=== PATIENT | female | born 1970 | race Caucasian/White ===

== ENCOUNTER 2018-11-03 16:09 | Observation (INO) | payer BC ==
[2018-11-03] MEDS ORDERED: NS 1,000 ML IV ONE (16:12)
[2018-11-03] MEDS ORDERED: ASPIRIN 81 MG CHEWABLE TAB PO ONE (16:12)
--- NOTE | 2018-11-03 16:12 | EDPHY ---
H & P Time Seen by Provider: 11/03/18 16:12 HPI/ROS: HPI CHIEF COMPLAINT: Chest pain. HISTORY OF PRESENT ILLNESS: This patient is a 48-year-old female she is otherwise healthy, she presents emergency room with chest pressure after exertion. Patient states yesterday she went to do her cross fit activity and developed chest pressure discomfort in her chest after her workout. She then took a nap at home and then went for a run and again developed chest pressure. It is resolved with rest. She states she felt heaviness in her chest. She has never had this before. She denies pleuritic pain, denies recent illness. She does states she has had some sick contacts at home. She main appoint with her primary care doctor today was referred to the emergency room. She does report that when she walked into the building to go see her primary care doctor up stairs walked upstairs she developed some chest pressure. She thought maybe she had the flu. She does endorse some muscle aches and joint pain. No fever. No vomiting. No pleuritic pain, no cough. She denies any significant cardiovascular family history. Past Medical History: Adrenal replacement. Past Surgical History: Uterine ablation. Knee surgery. Social History: Denies drugs alcohol tobacco daily. Family History: Denies cardiovascular history are pre per chart cardiac . ROS REVIEW OF SYSTEMS: 10 Systems were reviewed and negative with the exception of the elements mentioned in the history of present illness. Exam Constitutional appears well nontoxic no acute distress triage nursing summary reviewed, vital signs reviewed, awake/alert. Eyes normal conjunctivae and sclera, EOMI, PERRLA. HENT normal inspection, atraumatic, moist mucus membranes, no epistaxis, neck supple/ no meningismus, no raccoon eyes. Respiratory clear to auscultation bilaterally, normal breath sounds, no respiratory distress, no wheezing. Cardiovascular rate normal, regular rhythm, no murmur, no edema, distal pulses normal. Gastrointestinal soft, non-tender, no rebound, no guarding, normal bowel sounds, no distension, no pulsatile mass. Genitourinary no CVA tenderness. Musculoskeletal no midline vertebral tenderness, full range of motion, no calf swelling, no tenderness of extremities, no meningismus, good pulses, neurovascularly intact. Skin pink, warm, & dry, no rash, skin atraumatic. Neurologic awake, alert and oriented x 3, AAOx3, moves all 4 extremities equally, motor intact, sensory intact, CN II-XII intact, normal cerebellar, normal vision, normal speech. Psychiatric normal mood/affect. Heme/Lymph/Immune no lymphadenopathy. Differential Diagnosis: Differential diagnosis includes but is not limited to: ACS, atypical chest pain, pneumothorax, pneumonia, pulmonary embolism, aortic dissection, congestive heart failure, tumor, musculoskeletal pain, esophageal pain, GERD, peptic ulcer disease, pancreatitis Medical Decision Making: Plan for this patient IV establishment, full-dose aspirin, EKG, troponin, chest x-ray, D-dimer Re-evaluation: EKG interpretation by me on record in [employer] system. Impression sinus rhythm rate of 68, without any signs of acute ischemia. No ST elevation no ST depression. 183: Patient here in emergency room at this time chest pain-free. So far cardiac evaluation has been rather unremarkable. She denies any current chest pain, she did receive full-dose aspirin here. She declined nitroglycerin. She has a negative troponin, negative D-dimer, and a nonischemic EKG and a chest x- ray that is unremarkable. The patient has agreed for hospital admission. Given her story which consist of exertional chest pressure when she exerts herself 1 time will doing CrossFit comma 1 time while running, and also coming into the building today walking up a flight of stairs she got chest pressure. These symptoms are very concerning. Long discussion with the patient at bedside they agree for hospital admission, agree to transfer to the hospital for further cardiac evaluation. I did speak with Dr. Blake agrees to admit. Source: Patient Constitutional: Initial Vital Signs Temperature (C) 36.8 C 11/03/18 16:17 Heart Rate 93 11/03/18 16:17 Respiratory Rate 16 11/03/18 16:17 Blood Pressure 158/97 H 11/03/18 16:17 O2 Sat (%) 98 11/03/18 16:17 O2 Delivery Mode Room Air Allergies/Adverse Reactions: No Known Allergies Allergy (Verified 11/03/18 16:28) Home Medications: Medication Instructions Recorded Cholecalciferol Vit D3 [Vitamin D3 1,000 units PO DAILY 11/03/18 (*)] Glucosamine/Chondroitin 1 each PO DAILY 11/04/18 [Glucosamine/Chondroitin (*)] Herbals/Supplements -Info Only 1 ea PO DAILY 11/04/18 Ibuprofen [Motrin (*)] 600 mg PO DAILY PRN 11/04/18 Multivitamins [Multivitamin (*)] 1 each PO DAILY 11/04/18 Vitamin B Complex [Vitamin B 1 each PO DAILY 11/04/18 Complex (OTC)] Medical Decision Making - Data Points Medications Given: Discontinued Medications Aspirin (Aspirin) 324 mg PO EDNOW ONE Stop: 11/03/18 16:13 Last Admin: 11/03/18 16:29 Dose: 324 mg Sodium Chloride (Ns) 1,000 mls @ 0 mls/hr IV EDNOW ONE; Wide Open PRN Reason: Protocol Stop: 11/03/18 16:13 Last Admin: 11/03/18 16:36 Dose: 1,000 mls Nitroglycerin (Nitrostat) 0.4 mg SL EDNOW ONE Stop: 11/03/18 16:34 Last Admin: 11/03/18 18:42 Dose: Not Given Point of Care Test Results: CBC CBC Collection Date 11/03/18 CBC Collection Time 16:34 WBC 7.40 RBC 4.75 HGB 15.1 HCT 44.0 PLT 307 Neut # 4.67 Neut 63.1 LYMPH # 1.57 LYMPH 21.2 MCV 92.6 Chemistry 11/03/18 11/03/18 16:45 16:41 POC Sodium 142 mEq/L mEq/L (135-145) POC Potassium 4.0 mEq/L mEq/L (3.3-5.0) POC Chloride 105.0 mEq/L mEq/L (97-110) POC Total CO2 25 mEq/L mEq/L (22-31) POC BUN 11 mg/dL mg/dL (7-23) POC Creatinine 0.9 mg/dL mg/dL (0.6-1.0) POC Glucose 97 mg/dL mg/dL (70-100) POC Calcium 8.9 mg/dL mg/dL (8.5-10.4) POC Total Bilirubin 0.8 mg/dL mg/dL (0.1-1.4) POC AST 26 IU/L IU/L (14-46) POC ALT 20 IU/L IU/L (9-52) POC Alk Phosphatase 89 IU/L IU/L (38-126) POC Troponin I 0.00 ng/mL ng/mL (0.00-0.08) POC Total Protein 7.0 g/dL g/dL (6.3-8.2) POC Albumin 3.7 g/dL g/dL (3.5-5.0) Comprehensive Metabolic Panel CMP Collection Date 11/03/18 CMP Collection Time 16:34 D-Dimer D-Dimer Collection Date 11/03/18 D-Dimer Collection Time 16:34 D-Dimer (ng/ml) 210 Influenza PCR Flu Nasal Swab Collection Date 11/03/18 Flu Nasal Swab Collection Time 16:42 Influenza A Result Not Detected Influenza B Result Not Detected Departure - Departure Disposition: [facility] Inpatient Acute Clinical Impression: Chest pain Qualifiers: Chest pain type: unspecified Qualified Code(s): R07.9 - Chest pain, unspecified Condition: Good
[2018-11-03] MEDS ORDERED: ASPIRIN 81 MG CHEWABLE TAB ONE (16:26)
[2018-11-03] MEDS ORDERED: NITROGLYCERIN 0.4 MG BTL SL ONE (16:33)
[2018-11-03] MEDS ORDERED: ONDANSETRON 4 MG/2 ML VIAL IVP PRN (21:40)
[2018-11-03] MEDS ORDERED: ACETAMINOPHEN 325 MG TAB PO PRN (21:40)
[2018-11-03] MEDS ORDERED: NITROGLYCERIN 0.4 MG BTL SL PRN (21:40)
--- NOTE | 2018-11-03 22:32 | PDGENHP ---
History and Physical - Chief Complaint chest pain - History of Present Illness 48yo healthy F presents from [facility] ED for further evaluation of chest pain. Substernal, strong pressure that doesn't radiate. Associated with shortness of breath. It is exertional but not pleuritic or positional. Doesn't worsen with palpation. She has had intermittent palpitations but no syncope. No leg swelling. She first noticed chest pain 2 weeks ago after her son passed out while getting out of a hot tub; she felt very stressed at that time. She was pain free for about 2 weeks but then noticed again yesterday while at [employer]. She was doing burpees and felt considerably tired and fatigued and had chest pain. She went home and her chest pain resolved. She then later went on a run with a friend and had recurrence of her symptoms and had to end the run prematurely. Of note, cross fit and running are typical activities for her. She woke up this morning with muscle aches and had a recurrence of chest pain and shortness of breath while walking up a flight of stairs so she went to her PCP' s office who directed her to the ED at the [facility]. She is currently chest pain free. Her initial ecg and troponin were negative for ischemia. A d-dimer was also negative. She is being admitted for further evaluation. Case discussed with ED provider Roe Tamayo. History Information - Allergies/Home Medication List Allergies/Adverse Reactions: No Known Allergies Allergy (Verified 11/03/18 16:28) Home Medications: Vitamin D3 11/03/18 [Last Taken Unknown] I have personally reviewed and updated: family history, medical history, social history, surgical history - Past Medical History no pertinent PMH - Surgical History Additional surgical history: uterine re-suspension surgery, knee surgery - Family History Additional family history: No family history of heart disease or strokes. - Social History Smoking Status: Never smoked Alcohol Use: Rarely Drug Use: None Additional social history: Lives with who is at bedside. Has 3 children. Originally from [place], moved to [place] 3 years ago. Review of Systems Review of Systems: ROS: 10pt was reviewed & negative except for what was stated in HPI & below Physical Exam Physical Exam: Temp Pulse Resp BP Pulse Ox 36.6 C 63 14 125/85 H 94 11/03/18 22:09 11/03/18 22:09 11/03/18 22:09 11/03/18 22:09 11/03/18 22:09 Constitutional: no apparent distress, appears nourished, not in pain Eyes: PERRL, anicteric sclera, EOMI Ears, Nose, Mouth, Throat: moist mucous membranes, hearing normal, ears appear normal, no oral mucosal ulcers Cardiovascular: regular rate and rhythym, no murmur, rub, or gallop, No JVD, No edema Respiratory: no respiratory distress, no rales or rhonchi, clear to auscultation Gastrointestinal: normoactive bowel sounds, soft, non-tender abdomen, no palpable masses Genitourinary: no bladder fullness, no bladder tenderness Skin: warm, normal color, no rashes or abrasions, no fluctuance, no induration, No mottled Musculoskeletal: full muscle strength, no muscle tenderness, normal joint ROM, no joint effusions Neurologic: AAOx3 Psychiatric: interacting appropriately, not anxious, not encephalopathic, thought process linear Lab Data & Imaging Review POC Sodium 142 mEq/L (135-145) 11/03/18 16:45 POC Potassium 4.0 mEq/L (3.3-5.0) 11/03/18 16:45 POC Chloride 105.0 mEq/L (97-110) 11/03/18 16:45 POC Total CO2 25 mEq/L (22-31) 11/03/18 16:45 POC BUN 11 mg/dL (7-23) 11/03/18 16:45 POC Creatinine 0.9 mg/dL (0.6-1.0) 11/03/18 16:45 POC Glucose 97 mg/dL (70-100) 11/03/18 16:45 POC Calcium 8.9 mg/dL (8.5-10.4) 11/03/18 16:45 POC Total Bilirubin 0.8 mg/dL (0.1-1.4) 11/03/18 16:45 POC AST 26 IU/L (14-46) 11/03/18 16:45 POC ALT 20 IU/L (9-52) 11/03/18 16:45 POC Alk Phosphatase 89 IU/L (38-126) 11/03/18 16:45 POC Troponin I 0.00 ng/mL (0.00-0.08) 11/03/18 16:41 POC Total Protein 7.0 g/dL (6.3-8.2) 11/03/18 16:45 POC Albumin 3.7 g/dL (3.5-5.0) 11/03/18 16:45 Interpretation: CXR: normal heart size, no heart failure, no effusion or infiltrate (interpreted by me) EKG additional interpertation: ECG: NSR, normal axis and intervals, good R wave progression, no ischemic ST-T segment changes, no right heart strain (interp by me) Assessment & Plan Assessment: 48yo healthy F presents from [facility] ED for further evaluation of chest pain. Plan: #Chest pain: Although she has minimal risk factors for CAD, her story is concerning. Initial ecg and troponin are negative. Her d-dimer is also negative. HEART score of 3 (age, history) indicating low risk, but given her rather typical chest pain features, this warrants further evaluation. - Cycle troponins/ecg - Telemetry - If above negative and remains pain free, I have ordered an exercise stress test for the AM #Elevated BP: This has improved since arriving and I suspect related to anxiety. Monitor. VTE ppx: ambulate Code: full Diet: NPO at midnight Dispo: Admit under observation
--- NOTE | 2018-11-04 11:31 | PDCARST ---
CAR Stress Test Results Type of Stress Test: TM stress test Indication: chest pain Description of Procedure: was performed with standard stress automation test engineer electrode placement. Vital signs were monitored according to protocol throughout the procedure. STRESS EKG AND HEMODYNAMIC DATA. Exercise time: 8 min. This is equivalent to: 8.9 METS. Resting heart rate: 85 bpm. Resting blood pressure: 112/74 mmHg. Resting O2 saturation: 95 %. Peak heart rate: 165 bpm. This is 95 % of age predicted maximum heart rate response. Peak blood pressure: 154/76 mmHg. Exercise O2: 92 %. Arrhythmias : None. Reason for termination: The test was stopped due to maximal effort . Symptoms: The patient experienced no typical symptoms of angina during stress or recovery. STRESS TEST ANALYSIS. Baseline ECG: SR. Stress ECG: sinus tach. ECG changes: Twi at early exercise that resolved by stage 2. Rhythm: No arrhythmias noted during exercise and recovery. Blood pressure: normal blood pressure response to exercise. Exercise tolerance: The patient has average exercise tolerance adjusted for age and gender. Impression: Chest pain at 5/10 on exertion that would come and go through exercise. Transient T wi in early exercise. Conclusion: Intermediate risk TM stress test. Recommend nuclear stress test.
--- NOTE | 2018-11-04 14:43 | PDCARST ---
CAR Stress Test Results Type of Stress Test: Nuclear TM stress test Indication: cp/abnormal TM stress test Description of Procedure: After informed consent was obtained, pt was exercised according to Jose Protocol. Monitoring was performed with standard stress senior software tester electrode placement. Vital signs were monitored according to protocol throughout the procedure. STRESS EKG AND HEMODYNAMIC DATA. Exercise time: 8 min. This is equivalent to: 9.1 METS. Resting heart rate: 100 bpm. Resting blood pressure: 124/82 mmHg. Resting O2 saturation: 99 %. Peak heart rate: 161 bpm. This is 93 % of age predicted maximum heart rate response. Peak blood pressure: 152/84 mmHg. Exercise O2: 90%. Arrhythmias : None. Reason for termination: The test was stopped due to maximal effort. Symptoms: The patient experienced no typical symptoms of angina during stress or recovery. STRESS TEST ANALYSIS. Baseline ECG: NSR, diffuse T w flattenting. Stress ECG: sinus tach. No exercise induced ischemic ECG changes. Rhythm: no arrhythmias noted during exercise and recovery. Blood pressure: normal blood pressure response to exercise. Exercise tolerance: The patient has normal exercise tolerance adjusted for age and gender. Symptoms: No exercise induced symptoms. Impression: DTS: +8 Conclusion: Await nuclear imaging results.
[2018-11-04 16:01] VITALS: BP 126/84
--- NOTE | 2018-11-04 16:06 | PDDCSUM ---
Discharge Summary Discharge Summary: DISCHARGE DIAGNOSES: * Chest pain, atypical * Ruled out for [place] * Non reversible decreased perfusion in inferior wall on myocardial perfusion imaging, suspect likely breast artifact, old infarction possible but unlikely PROCEDURES: Exercise treadmill stress testing with myocardial perfusion imaging HOSPITAL COURSE SUMMARY: This patient came into the ER having had some episodes of exertional chest discomfort as well as some discomfort at rest. She did not have any evidence of arrhythmia or palpitations and had stable vital signs. Initial EKGs and troponins were without signs of injury or ischemia The patient was observed overnight with cardiac monitoring, repeat troponin testing and there were no abnormalities there. She underwent exercise treadmill testing with myocardial perfusion imaging. She got her heart rate up to 165 at 9 Mets of exercise. The patient did not have any definite angina or other concerning symptoms and there was no arrhythmia. On myocardial perfusion imaging there are no reversible defects and her ejection fraction is normal with no wall motion abnormalities. There was some fixed perfusion abnormalities in the inferior aspect of the heart suggesting likely breast artifact or other soft tissue artifact, unable to entirely rule out prior inferior infarct. At at this point the patient is stable for discharge to home with very low risk of any cardiac events. She is aware of the potential for false negative result on all of our tests. She is aware that there are numerous other noncardiac causes of chest pain which we have not specifically evaluated here, and that if she has ongoing pain she has have continued assessment with her primary care doctor for other causes. We will have her visit with Cardiology in clinic in the next week or 2 to review her symptoms and to review the perfusion abnormalities as seen on her stress test and determine whether any other assessments or monitoring should be undertaken. PENDING TEST RESULTS: None MEDICATION CHANGES: None FOLLOW-UP PLAN: At [facility] in 1-2 weeks Greater than 35 minutes bedside and care coordination time today
--- NOTE | 2018-11-04 16:11 | ASDISCHSUM ---
Discharge Information Plan Status:Home with No Needs Medically Cleared to Leave:11/04/2018 Discharge Date:11/04/2018 CM D/C Disposition:Home, Routine, Self-Care ADT D/C Disposition:Home, Routine, Self-Care Projected Discharge Date:11/04/2018 Transportation at D/C: Discharge Delay Reason: Follow-Up Date:11/04/2018 Discharge Slot: Final Diagnosis: Placement Information Patient Contact Information Contact Name:POLO Relationship: Address:[address] City:[facility] Phone: [facility]/Zip Code:[place] [address] Email: Financial Information Financial Class:BCOP Primary Plan Desc:BC OUT OF STATE PPO Primary Plan Number:[id number] Secondary Plan Desc: Secondary Plan Number: Assessment Information LACE LACE Length of stay for Answers: Less than 1 day current admission Acuity / Level of Answers: No Care: Did the patient have an inpatient admission? # of Emergency department Answers: 1-2 visits in the last 6 months Score: 1 Date Signed: 11/04/2018 04:11 PM Electronically Signed By:Myra Taylor RN Intervention Information
--- NOTE | 2018-11-07 07:56 | CPEKG ---
Test Reason : OPEN Blood Pressure : / mmHG Vent. Rate : 068 BPM Atrial Rate : 069 BPM P-R Int : 129 ms QRS Dur : 088 ms QT Int : 409 ms P-R-T Axes : 060 017 042 degrees QTc Int : 436 ms Sinus rhythm Confirmed by Roe Tamayo ([id number]) on 11/07/2018 7:55:11 AM Referred By: Roe Tamayo Confirmed By:Roe Tamayo
== END 2018-11-04 17:08 | disposition home or self-care (01) ==
LOC: CED 16:09 → CEDHOLD 18:32 → F2W 21:00
PROVIDERS: ADMIT Internal Medicine; ATTEND Internal Medicine
DX: R07.89 Other chest pain (principal)
CPT/HCPCS: 71045; 78452; 93005; 93017; 96360; 99285; A9500; G0378; 80053-ER; 84484-ER; 85025-QW-ER; 85379-QW-ER; 87400-QW-ER